=== PATIENT | female | born 1925 | race Caucasian/White ===

== ENCOUNTER 2016-11-10 12:47 | Emergency (ER) | payer OTHER, BC ==
[2016-11-10 12:53] VITALS: BP 138/67; PULSE 89; TEMP 97.6; BMI 22.3
--- NOTE | 2016-11-10 13:29 | PDOC ---
History of Present Illness - General Chief Complaint: Vaginal Sxs Stated Complaint: UTI Time Seen by Provider: 11/10/16 13:18 History Source: Patient Exam Limitations: No Limitations - History of Present Illness Initial Comments: 11/10/16 14:25 My chief complaint: Burning with urination that started today and vaginal itching times one week History of present illness: Patient is an 89-year-old female with a history of GERD with hiatus hernia and hypothyroidism and a partial colectomy for chronic bowl volulus today complaining of burning with urination that started today. Patient also reports itchiness of vaginal area for one week. Patient denies any vaginal discharge. Patient denies any frequency, urgency or incontinency or hematuria. Patient denies any fever, nausea, vomiting, abdominal or back pain. Timing/Duration: getting worse (started today ) Severity: mild Associated Symptoms: reports: other (burning with urination, dryness of vagina for one week ) Past History - Past Medical History Allergies/Adverse Reactions: Allergies Allergy/AdvReac Type Severity Reaction Status Date / Time ciprofloxacin [From Cipro] Allergy Verified 11/10/16 12:53 ciprofloxacin HCl Allergy Verified 11/10/16 12:53 [From Cipro] Penicillins Allergy Verified 11/10/16 12:53 Home Medications: Ambulatory Orders Levothyroxine [Synthroid -] 50 mcg PO DAILY 06/05/13 Benzocaine/Resorcin/Aloe/E,A,D [Vagisil Cream] 28 gm TP BID #1 cream..g. MDD 2 11/10/16 Nitrofurantoin Monohyd/M-Cryst [Macrobid -] 100 mg PO BID #13 capsule 11/10/16 Anemia: No Asthma: No Cancer: No Cardiac Disorders: No CVA: No COPD: No CHF: No Dementia: No Diabetes: No GI Disorders: Yes (GERD W/ HIATAL HERNIA) Disorders: No HTN: No Hypercholesterolemia: No Liver Disease: No Seizures: No Thyroid Disease: Yes (HYPOTHYROID DISEASE) - Surgical History Abdominal Surgery: Yes (PARTIAL COLECTOMY-FOR CHRONIC VOLVULUS FROM ADHESIONS) Appendectomy: Yes Cardiac Surgery: No Cholecystectomy: Yes Lung Surgery: No Neurologic Surgery: No Orthopedic Surgery: No - Immunization History Immunization Up to Date: No - Psycho/Social/Smoking Cessation Hx Anxiety: No Suicidal Ideation: No Smoking Status: No Smoking History: Former smoker Have you smoked in the past 12 months: No Number of Cigarettes Smoked Daily: 0 If you are a former smoker, when did you quit?: 40 YRS Information on smoking cessation initiated: No Hx Alcohol Use: No Drug/Substance Use Hx: No Substance Use Type: None Hx Substance Use Treatment: No Review of Systems - Review of Systems Able to Perform ROS?: Yes Constitutional: No: Symptoms Reported HEENTM: No: Symptoms Reported Respiratory: No: Symptoms reported Cardiac (ROS): No: Symptoms Reported ABD/GI: No: Symptoms Reported : Yes: Burning (with urination today ), Other (vaginal dryness with irritated feeling ). No: Discharge, Frequency, Flank Pain, Hematuria, Incontinence, Urgency Musculoskeletal: No: Symptoms Reported Integumentary: No: Symptoms Reported Neurological: No: Symptoms reported *Physical Exam - Vital Signs Last Vital Signs Temp Pulse Resp BP Pulse Ox 97.6 F 89 20 138/67 99 11/10/16 12:48 11/10/16 12:48 11/10/16 12:48 11/10/16 12:48 11/10/16 12:48 - Physical Exam General Appearance: Yes: Appropriately Dressed Respiratory/Chest: positive: Lungs Clear, Normal Breath Sounds. negative: Chest Tender, Respiratory Distress Cardiovascular: positive: Regular Rhythm, Regular Rate, S1, S2 Female Pelvic Exam: positive: vaginal bleeding (minimal with introduction of speculum ), other (unable to do thorough exam due to uncomfortablily with speculum, vagina wall friable unable to visualize cervical os due to pt. saying ) take that speculum out" , ). negative: normal external exam (skin on external vulva erythematous ), discharge Gastrointestinal/Abdominal: positive: Normal Bowel Sounds, Soft. negative: Tender, Organomegaly, Distended, Guarding, Rebound, Tenderness, Hepatomegaly, Spleenomegaly Musculoskeletal: negative: CVA Tenderness, CVA Tenderness (R), CVA Tenderness (L ) Neurologic: positive: Fully Oriented, Alert, Normal Response, Responsive Medical Decision Making - Medical Decision Making 11/10/16 14:27 Patient is an 89-year-old female with a history of GERD with hiatus hernia and hypothyroidism and a partial colectomy for chronic bowl volulus today complaining of burning with urination that started today. Patient also reports itchiness of vaginal area for one week. Patient denies any vaginal discharge. Patient denies any frequency, urgency or incontinency or hematuria. Patient denies any fever, nausea, vomiting, abdominal or back pain. rule Out UTI Atropic vaginitis UTI PLAN: Urinalysis C& S Genital culture 11/10/16 14:29 Treat with Macrobid 100 mg po now then twice a day for 7 days Vaginal twice daily to external vulva Laboratory Tests 11/10/16 13:30 Urine Color Yellow Urine Appearance Slcloudy Urine pH 5.0 Ur Specific [place] 1.020 Urine Protein Negative Urine Glucose (UA) Negative Urine Ketones Negative Urine Blood 2+ H Urine Nitrite Negative Urine Bilirubin Negative Urine Urobilinogen Negative Ur Leukocyte Esterase 1+ H Urine RBC 25 Urine WBC 5 Ur Epithelial Cells Rare Hyaline Casts 1 Urine Mucus Rare 11/10/16 14:33 11/10/16 18:29 *DC/Admit/Observation/Transfer Diagnosis at time of Disposition: Atrophic vaginitis UTI (urinary tract infection) Qualifiers: Urinary tract infection type: acute cystitis Hematuria presence: with hematuria Qualified Code(s): N30.01 - Acute cystitis with hematuria - Discharge Dispostion Disposition: HOME Condition at time of disposition: Stable - Prescriptions Prescriptions: Nitrofurantoin Monohyd/M-Cryst [Macrobid -] 100 mg PO BID #13 capsule Benzocaine/Resorcin/Aloe/E,A,D [Vagisil Cream] 28 gm TP BID #1 cream..g. MDD 2 - Referrals Referrals: Mickey Morales MD [Primary Care Provider] - Jay Mchugh MD [Staff Physician] - - Patient Instructions Additional Instructions: Drink A lot of fluids especially water and cranberry just Return to emergency room if any fever, back pain nausea or vomiting Follow-up with your hvac lead as soon as possible Primary care provider for repeat urine testing after treatment is finished Patient voiced understanding of discharge instructions and all questions were answered
[2016-11-10 13:53] LABS: URINE APPEARANCE SLCLOUDY; URINE BILIRUBIN NEGATIVE (NEGATIVE); URINE BLOOD 2+ (NEGATIVE); URINE COLOR YELLOW; URINE GLUCOSE (UA) NEGATIVE (NEGATIVE); URINE KETONE NEGATIVE (NEGATIVE); URINE LEUK ESTERASE 1+ (NEGATIVE); URINE NITRITE NEGATIVE (NEGATIVE); URINE PROTEIN NEGATIVE (NEGATIVE); URINE UROBILINOGEN NEGATIVE E.U./dl (0.2-1.0)
[2016-11-10 14:05] LABS: URINE HYALINE CAST 1 /lpf; URINE MUCUS RARE; URINE RBC 25 /hpf (0-3); URINE WBC 5 /hpf (3-5)
[2016-11-10] MEDS ORDERED: NITROFURANTOIN MACROCRYSTAL 50 MG CAPSULE (FP) PO SCH (14:30)
[2016-11-10] MEDS ORDERED: NITROFURANTOIN MACROCRYSTAL 50 MG CAPSULE (FP) ONE (14:36)
== END 2016-11-10 14:59 | disposition home or self-care (01) ==
LOC: JERFT 12:47
DX: N30.01 Acute cystitis with hematuria (principal); N95.2 Postmenopausal atrophic vaginitis; K21.9 Gastro-esophageal reflux disease without esophagitis; E03.9 Hypothyroidism, unspecified; Z87.891 Personal history of nicotine dependence
CPT/HCPCS: 81003; 81015; 87070; 87086; 87205; 99281-25

== ENCOUNTER 2017-01-06 12:30 | Emergency (ER) | payer OTHER, BC ==
[2017-01-06 12:40] VITALS: BP 134/75; PULSE 83; TEMP 97.8; BMI 26.4
--- NOTE | 2017-01-06 13:11 | PDOC ---
History of Present Illness - History of Present Illness Initial Comments: 01/06/17 13:48 The patient is an 89-year-old woman with a significant past medical history of hypothyroidism and gastroesophageal reflux disease with hiatal hernia who presents to the ED for evaluation of dizziness and vaginal itching. She states that she experiences vaginal itching sensations along with burning sensations. No discharge/bleeding noted. She reports experiencing similar symptoms in the past, for which she has been evaluated by her Outboard Motor Inspector, Dr. Mchugh and was prescribed steroids for it. The patient was last seen here on December 20, 2016 and was discharged to f/u with her PCP. The patient saw Dr. Morales and got a prescription for metronidazole, mirtazapine, and hydrocortisone cream. The patient reports she experiences this dizziness in the morning when getting out of bed. The brother notes she gets confused. Allergies: Ciprofloxacin. Penicillin. Past Surgical History: Hiatal Hernia, Partial colectomy (chronic volvulus from adhesions), cholecystectomy. Social History: Retired. Lives at home alone. Former smoker. No ETOH and recreational drug use. Primary Care Physician: Dr. Mickey Morales Bilingual Nanny: Dr. Jay Mchugh <Marina Arreola - Last Filed: 01/06/17 14:08> <Lion Patterson - Last Filed: 01/06/17 15:01> - General Chief Complaint: Lightheaded Stated Complaint: Dizziness, nausea, med refill vaginal infection Time Seen by Provider: 01/06/17 13:10 Past History <Marina Arreola - Last Filed: 01/06/17 14:08> - Past Medical History Anemia: No Asthma: No Cancer: No Cardiac Disorders: No CVA: No COPD: No CHF: No Dementia: No Diabetes: No GI Disorders: Yes (GERD W/ HIATAL HERNIA) Disorders: No HTN: No Hypercholesterolemia: No Liver Disease: No Seizures: No Thyroid Disease: Yes (HYPOTHYROID DISEASE) - Surgical History Abdominal Surgery: Yes (PARTIAL COLECTOMY-FOR CHRONIC VOLVULUS FROM ADHESIONS) Appendectomy: Yes Cardiac Surgery: No Cholecystectomy: Yes Lung Surgery: No Neurologic Surgery: No Orthopedic Surgery: No - Immunization History Immunization Up to Date: No - Psycho/Social/Smoking Cessation Hx Anxiety: No Suicidal Ideation: No Smoking Status: No Smoking History: Former smoker Have you smoked in the past 12 months: No Number of Cigarettes Smoked Daily: 0 If you are a former smoker, when did you quit?: 40 YRS Information on smoking cessation initiated: No Hx Alcohol Use: No Drug/Substance Use Hx: No Substance Use Type: None Hx Substance Use Treatment: No <Lion Patterson - Last Filed: 01/06/17 15:01> - Past Medical History Allergies/Adverse Reactions: Allergies Allergy/AdvReac Type Severity Reaction Status Date / Time ciprofloxacin [From Cipro] Allergy Verified 01/06/17 12:36 ciprofloxacin HCl Allergy Verified 01/06/17 12:36 [From Cipro] Penicillins Allergy Verified 01/06/17 12:36 Home Medications: Ambulatory Orders Levothyroxine [Synthroid -] 50 mcg PO DAILY 06/05/13 Benzocaine/Resorcin/Aloe/E,A,D [Vagisil Cream] 28 gm TP BID #1 cream..g. MDD 2 11/10/16 Nitrofurantoin Monohyd/M-Cryst [Macrobid -] 100 mg PO BID #13 capsule 11/10/16 Clotrimazole [Gyne-Lotrimin -] 1 applic TP PRN PRN 12/19/16 Review of Systems - Review of Systems Able to Perform ROS?: Yes Comments:: 01/06/17 13:49 GENERAL/CONSTITUTIONAL: No fever or chills. No weakness. HEAD, EYES, EARS, NOSE AND THROAT: No change in vision. No ear pain or discharge. No sore throat. CARDIOVASCULAR: No chest pain or shortness of breath. RESPIRATORY: No cough, wheezing, or hemoptysis. GASTROINTESTINAL: No nausea, vomiting, diarrhea or constipation. GENITOURINARY: +Vaginal itching. No vaginal bleeding or discharge, dysuria, frequency, or change in urination. MUSCULOSKELETAL: No joint or muscle swelling or pain. No neck or back pain. SKIN: No rash NEUROLOGIC: +Dizziness. No headache, loss of consciousness, or change in strength/sensation. ENDOCRINE: No increased thirst. No abnormal weight change. HEMATOLOGIC/LYMPHATIC: No anemia, easy bleeding, or history of blood clots. ALLERGIC/IMMUNOLOGIC: No hives or skin allergy <Marina Arreola - Last Filed: 01/06/17 14:08> *Physical Exam - Vital Signs Last Vital Signs Temp Pulse Resp BP Pulse Ox 97.8 F 83 18 134/75 97 01/06/17 12:32 01/06/17 12:32 01/06/17 12:32 01/06/17 12:32 01/06/17 12:32 - Physical Exam Comments: 01/06/17 13:49 GENERAL: Awake, alert and oriented x2. In no acute distress HEAD: No signs of trauma EYES: PERRLA, EOMI, sclera anicteric, conjunctiva clear ENT: Auricles normal inspection, hearing grossly normal, nares patent, oropharynx clear without exudates. Moist mucosa NECK: Normal ROM, supple, no lymphadenopathy, JVD, or masses LUNGS: Breath sounds equal, clear to auscultation bilaterally. No wheezes, and no crackles HEART: Regular rate and rhythm, normal S1 and S2, no murmurs, rubs or gallops ABDOMEN: Soft, nontender, normoactive bowel sounds. No guarding, no rebound. No masses EXTREMITIES: Normal range of motion, no edema. No clubbing or cyanosis. No cords, erythema, or tenderness NEUROLOGICAL: +Alert and oriented x2. Cranial nerves II through XII grossly intact. Normal speech, normal gait SKIN: Warm, Dry, normal turgor, no rashes or lesions noted. <Marina Arreola - Last Filed: 01/06/17 14:08> - Vital Signs Last Vital Signs Temp Pulse Resp BP Pulse Ox 97.8 F 83 18 134/75 97 01/06/17 12:32 01/06/17 12:32 01/06/17 12:32 01/06/17 12:32 01/06/17 12:32 <Lion Patterson - Last Filed: 01/06/17 15:01> ED Treatment Course - LABORATORY CBC & Chemistry Diagram: 01/06/17 13:40 01/06/17 13:40 <Marina Arreola - Last Filed: 01/06/17 14:08> - LABORATORY CBC & Chemistry Diagram: 01/06/17 13:40 01/06/17 13:40 <Lion Patterson - Last Filed: 01/06/17 15:01> Medical Decision Making - Medical Decision Making 01/06/17 13:55 The patient is an 89-year-old woman with a significant past medical history of hypothyroidism and gastroesophageal reflux disease with hiatal hernia who presents to the ED for evaluation of dizziness and vaginal itching. The patient appears to be confused while in the ED, she is alert and oriented x1. The plan is to order labs and call Dr. Morales. Discussed the patients case with Dr. Morales, who reports he told her to f/ u with Dr. Barron (Outboard Motor Inspector). Dr. Morales reports he wants the patient to f/u with Outboard Motor Inspector and not be given more cream. The patient will be discharged to follow up with Dr. Barron. Discussed the plan for discharge with the patient who agrees with the plan, all questions answered. <Marina Arreola - Last Filed: 01/06/17 14:08> *DC/Admit/Observation/Transfer - Attestations Scribe Attestion: 01/06/17 13:48 Documentation prepared by Marina Arreola, acting as medical assistant instructor for Lion Patterson MD/DO. <Marina Arreola - Last Filed: 01/06/17 14:08> - Discharge Dispostion Admit: No - Attestations Physician Attestion: 01/06/17 13:10 I, Dr. Lion Patterson, attest that this document has been prepared under my direction and personally reviewed by me in its entirety. I further attest, that it accurately reflects all work, treatment, procedures and medical decision -making performed by me. <Lion Patterson - Last Filed: 01/06/17 15:01> Diagnosis at time of Disposition: Vaginal irritation - Discharge Dispostion Disposition: HOME Condition at time of disposition: Good - Referrals Referrals: Zak Gonzales [Primary Care Provider] - Juan Daniel Barron MD [Staff Physician] - - Patient Instructions Printed Discharge Instructions: DI for Vaginal Itching Additional Instructions: Marci, I spoke with your Doctor by phone. He wants you to see Dr. Barron before anyone give you any more cream. Call and make an appointment today. Best- Dr. Lion Patterson
[2017-01-06 13:52] LABS: BASOPHIL 0.7 % (0-2.0); EOSINOPHIL 0.8 % (0-4.5); MCH 29.3 pg (25.7-33.7); MCHC 33.1 g/dl (32.0-36.0); MEAN CELL VOLUME 88.6 fl (80-96); MEAN PLT VOLUME 8.8 fl (7.5-11.1); NEUTROPHILS 65.8 % (42.8-82.8); PLATELET COUNT 261 K/MM3 (134-434); RDW 14.1 % (11.6-15.6); WHITE BLOOD COUNT 8.5 K/mm3 (4.0-10.0)
[2017-01-06 13:58] LABS: URINE APPEARANCE CLEAR; URINE BILIRUBIN NEGATIVE (NEGATIVE); URINE COLOR STRAW; URINE GLUCOSE (UA) NEGATIVE (NEGATIVE); URINE KETONE NEGATIVE (NEGATIVE); URINE NITRITE NEGATIVE (NEGATIVE); URINE PROTEIN NEGATIVE (NEGATIVE); URINE UROBILINOGEN NEGATIVE E.U./dl (0.2-1.0)
[2017-01-06 14:13] LABS: INR 1.04 (0.82-1.09); PROTHROMBIN TIME (PATIENT) 11.5 SEC (9.98-11.88)
[2017-01-06 14:15] LABS: URINE BLOOD 1+ (NEGATIVE); URINE LEUK ESTERASE 1+ (NEGATIVE)
[2017-01-06 14:20] LABS: ALBUMIN 3.9 g/dl (3.4-5.0); CALCIUM 9.6 mg/dL (8.5-10.1)
[2017-01-06 14:22] LABS: URINE RBC <1 /hpf (0-3); URINE WBC 7 /hpf (3-5)
[2017-01-06 14:26] LABS: BILIRUBIN,TOTAL 0.4 mg/dL (0.2-1.0); CREATININE 0.9 mg/dL (0.55-1.02); TOT PROT 7.2 g/dl (6.4-8.2)
== END 2017-01-06 15:35 | disposition home or self-care (01) ==
LOC: JERFT 12:30
DX: N89.8 Other specified noninflammatory disorders of vagina (principal); Z87.891 Personal history of nicotine dependence; E03.9 Hypothyroidism, unspecified; K21.9 Gastro-esophageal reflux disease without esophagitis
CPT/HCPCS: 36415; 80053; 81003; 81015; 85025; 85610; 87086; 99281-25